=== PATIENT | female | born 2005 | race Caucasian/White ===

== ENCOUNTER 2024-02-14 21:44 | Inpatient (IN) ==
[2024-02-14] MEDS: SODIUM CHLORIDE 0.9% 1,000 ML IV ONE ×2 (22:10→23:53)
[2024-02-14] MEDS: LORazepam 1 MG/1 ML SYR ED Inj Use IV STA (22:11)
[2024-02-14 22:13] LABS: Basophils # (auto) 0.05 K/uL (0.00-0.20); Basophils % (auto) 0.4 %; Eosinophils # (auto) 0.06 K/uL (0.00-0.50); Eosinophils % (auto) 0.5 %; Hematocrit (blood only) 43.9 % (37.0-47.0); Hemoglobin 15.5 g/dl (12.0-16.0); Immature Granulocytes # (auto) 0.05 K/uL (0.01-0.20); Immature Granulocytes % (auto) 0.4 %; Lymphocytes # (auto) 4.02 K/uL (1.20-3.40); Mean Corpuscular Hgb Conc 35.3 g/dL (32.0-36.0); Mean Corpuscular Volume 84.9 fL (80.0-100.0); Mean Platelet Volume 10.1 fL (9.4-12.4); Monocytes # (auto) 0.55 K/uL (0.11-0.59); Monocytes % (auto) 4.9 %; Neutrophils # (auto) 6.45 K/uL (1.40-6.50); Neutrophils % (auto) 57.8 %; Platelet Count 354 K/uL (130-400); RDW Coefficient of Variation 11.9 % (11.5-14.5); RDW Standard Deviation 36.1 fL (36.4-46.3); Red Blood Count 5.17 M/uL (4.20-5.40); White Blood Count 11.18 K/ul (4.8-10.8)
[2024-02-14] MEDS: LORazepam 2 MG/1 ML VIAL IV STA ×2 (22:13→23:53)
--- NOTE | 2024-02-14 22:21 | Emergency Department Note ---
Impression & Plan Depression with suicidal ideation, Acute drug overdose, Seizure, Hypokalemia ED Provider Note NAME: WILLIAM BACK AGE: 18 SEX: F : 2005 ARRIVES VIA: Ambulance INFORMANT: Patient, EMS ED PROVIDER(S): John Painting DO CHIEF COMPLAINT: Overdose HPI: The patient is a 18-year-old female who presented to the emergency department for an overdose. The patient has been having depression and suicidal ideation over the course the last week. She admits that she took approximately 2 g of Lexapro at approximately 8 PM this evening. She did have 1 episode of emesis after she overdosed. The patient denies having any other coingestions. She denies having any chest pain or difficulty breathing. The patient denies any alcohol or drug abuse this evening. The patient is a history of similar episode in the past. The patient was found to be tachycardic. She arrived via ambulance. History additionally was obtained from the EMS personnel. ROS: See above HPI for pertinent positives & negatives. A total of 10 systems reviewed and were otherwise negative. PAST MEDICAL HISTORY: See Below PAST SURGICAL HISTORY: See Below FAMILY HISTORY: See Below SOCIAL HISTORY: See Below HOME MEDICATIONS: See Below ALLERGIES: See Below VITALS: See Below PHYSICAL EXAMINATION: GENERAL: The is awake and alert. She is somewhat anxious appearing. EYES: The conjunctivae are clear. The pupils are dilated and reactive to light bilaterally. There is nystagmus noted in both horizontal directions. EARS, NOSE, MOUTH AND THROAT: The nose is without any evidence of any deformity. NECK: The neck is nontender and supple. RESPIRATORY: Normal respiratory effort is noted there is no evidence of wheezing rhonchi or rales CARDIOVASCULAR: Tachycardic and regular heart sounds were noted to auscultation. There is no definite murmur. GASTROINTESTINAL: The abdomen is soft. Abdomen is nontender. MUSCULOSKELETAL/EXTREMITIES: There is no evidence of gross deformity full range of motion is noted in the hips and shoulders. SKIN: There is no obvious evidence of any rash. There are no petechiae, pallor or cyanosis noted. NEUROLOGIC: The patient is awake and alert. The patient follows commands well. Reflexes were 3+ in both patellar tendons. MEDICAL DECISION MAKING: The patient is a 18-year-old female who presented to the emergency department by ambulance after taking an overdose of her prescription Lexapro. The patient was already having nystagmus as well as tachycardia. She was hyperreflexic. IV fluid and IV Ativan was ordered. The patient did have a seizure while in the emergency department. She was treated further with IV fluids and further benzodiazepines. She was reevaluated multiple times. She started to have signs of intoxication with this overdose which included some alteration mental status. I discussed patient's laboratory and radiographic studies with her. [facility] agreed to evaluate the patient in the emergency department for further management and disposition. She was found to have decrease in her overall heart rate on my reevaluation. Triage Nursing notes reviewed. Prior medical records reviewed Vital Signs: reviewed and remarkable for tachycardia. Differential diagnosis: Overdose, toxicologic, infection, hypoglycemia, electrolyte abnormalities, cardiac sources, intracerebral event, neurologic, trauma, as well as other pathologies. ER treatment provided: See below Diagnostics interpreted by me: ECG: EKG was obtained in the emergency department. My interpretation is sinus tachycardia at 133 bpm. No PVCs were noted. Nonspecific ST segment abnormalities were noted. QTc was 586 milliseconds. This was compared to a tracing from January 15, 2023. The QTc at that time was 405 ms. Cardiac Monitoring: An order was placed for continuous cardiac monitoring. The monitor shows a rate of 120 bpm with sinus tachycardia. Laboratory studies: As stated above and show below. Imaging studies: See below. Radiographic imaging was reviewed by myself Consultation(s): I discussed this case with the [facility]. I discussed this case with Dr. Posada who is on-call for the [facility]. ED COURSE: Procedures: none Critical Care: I have personally spent greater than 45 minutes of critical care time in the direct management of this patient. This includes bedside care, interpretation of diagnostic studies, and testing, discussion with consultants, patient, and family members, and other required patient management activities. This 45 minutes is in excess of all separately billable procedures. Past Med/Surg History Problem List (Updated 02/14/24 @ 22:29 by John Painting DO) Hypokalemia (Acute) Seizure (Acute) Acute drug overdose (Acute) Depression with suicidal ideation (Acute) Dizziness of unknown etiology No significant past surgical history Depression Social History Smoking Status: Never smoker Preferred Language: Luxembourgish marital status: Single current occupational status: student Feels Safe at Home: Yes Gender Identity: Female Allergies Allergies Allergy/AdvReac Type Severity Reaction Status Date / Time No Known Allergies Allergy Unverified 03/01/23 11:08 Home Meds Home Medications Medication Instructions Recorded Confirmed escitalopram oxalate 20 mg tablet 20 mg PO DAILY 02/14/24 02/14/24 escitalopram oxalate 5 mg tablet 5 mg PO UD 02/14/24 02/14/24 Results & Data (ED) Vital Signs Vital Signs - 24 hr 02/14/24 21:49 02/14/24 21:56 02/14/24 21:57 Temperature 36.8 C Temperature Source Oral Pulse Rate 127 H 128 H 128 H Pulse Rate [Apical] Pulse Rate from SpO2 Sensor 127 H Pulse Rhythm Regular Pulse Rhythm [Apical] Pulse Strength Normal Pulse Strength [Apical] Respiratory Rate 22 23 Respiratory Effort / Characteristics Non-Labored Spontaneous Respiratory Depth Normal Respiratory Pattern Regular Blood Pressure 103/75 Blood Pressure [Right Arm] Blood Pressure Mean 84 Blood Pressure Mean [Right Arm] Blood Pressure Position Sitting Blood Pressure Position [Right Arm] Pulse Oximetry 97 98 Oxygen Delivery Method Room Air Oxygen Flow Rate Sepsis Recent Fever Within 48 Hours No Sepsis New/Unexplained Change in Mental Status N/A Sepsis Action Taken by Nursing No Action Required Oxygen Flow Rate - Titration Pulse Oximetry Post Tiitration 02/14/24 22:09 02/14/24 22:12 02/14/24 22:27 Temperature Temperature Source Pulse Rate 147 H 131 H Pulse Rate [Apical] Pulse Rate from SpO2 Sensor 146 H 131 H Pulse Rhythm Pulse Rhythm [Apical] Pulse Strength Pulse Strength [Apical] Respiratory Rate 24 23 Respiratory Effort / Characteristics Respiratory Depth Respiratory Pattern Blood Pressure 127/100 120/83 Blood Pressure [Right Arm] Blood Pressure Mean 109 95 Blood Pressure Mean [Right Arm] Blood Pressure Position Blood Pressure Position [Right Arm] Pulse Oximetry 100 99 100 Oxygen Delivery Method Oxymask Non-rebreather Oxygen Flow Rate 40 Sepsis Recent Fever Within 48 Hours Sepsis New/Unexplained Change in Mental Status Sepsis Action Taken by Nursing Oxygen Flow Rate - Titration 4 Pulse Oximetry Post Tiitration 99 02/14/24 22:27 02/14/24 22:45 02/14/24 23:00 Temperature Temperature Source Pulse Rate 130 H 143 H Pulse Rate [Apical] 128 H Pulse Rate from SpO2 Sensor 130 H Pulse Rhythm Pulse Rhythm [Apical] Pulse Strength Pulse Strength [Apical] Respiratory Rate 24 31 H 24 Respiratory Effort / Characteristics Respiratory Depth Respiratory Pattern Blood Pressure 117/71 119/73 Blood Pressure [Right Arm] 113/75 Blood Pressure Mean 86 86 Blood Pressure Mean [Right Arm] 87 Blood Pressure Position Blood Pressure Position [Right Arm] Pulse Oximetry 99 100 99 Oxygen Delivery Method Oxymask Oxygen Flow Rate 4 Sepsis Recent Fever Within 48 Hours Sepsis New/Unexplained Change in Mental Status Sepsis Action Taken by Nursing Oxygen Flow Rate - Titration Pulse Oximetry Post Tiitration 02/14/24 23:09 02/14/24 23:41 02/15/24 00:14 Temperature Temperature Source Pulse Rate 136 H Pulse Rate [Apical] 131 H 120 H Pulse Rate from SpO2 Sensor 136 H Pulse Rhythm Pulse Rhythm [Apical] Regular Regular Pulse Strength Pulse Strength [Apical] Strong Normal Respiratory Rate 21 25 H 22 Respiratory Effort / Characteristics Non-Labored Non-Labored Respiratory Depth Normal Normal Respiratory Pattern Regular Regular Blood Pressure Blood Pressure [Right Arm] 132/90 115/77 Blood Pressure Mean Blood Pressure Mean [Right Arm] 104 89 Blood Pressure Position Blood Pressure Position [Right Arm] Lying Lying Pulse Oximetry 96 95 96 Oxygen Delivery Method Room Air Room Air Oxygen Flow Rate Sepsis Recent Fever Within 48 Hours Sepsis New/Unexplained Change in Mental Status Sepsis Action Taken by Nursing Oxygen Flow Rate - Titration Pulse Oximetry Post Tiitration Home Medications Current Medication List: was personally reviewed by me Laboratory Data Attestation: I reviewed the patient's lab results. 02/14/24 21:40 02/14/24 21:40 Lab Results 02/14/24 02/14/24 02/14/24 Range/Units 21:18 21:40 21:48 WBC 11.18 H (4.8-10.8) K/ul RBC 5.17 (4.20-5.40) M/uL Hgb 15.5 (12.0-16.0) g/dl Hct 43.9 (37.0-47.0) % MCV 84.9 (80.0-100.0) fL MCH 30.0 (25.0-34.0) pg MCHC 35.3 (32.0-36.0) g/dL RDW Std Deviation 36.1 L (36.4-46.3) fL RDW Coeff of Sumi 11.9 (11.5-14.5) % Plt Count 354 (130-400) K/uL MPV 10.1 (9.4-12.4) fL Immature Gran % (Auto) 0.4 % Neut % (Auto) 57.8 % Lymph % (Auto) 36.0 % [place] % (Auto) 4.9 % Eos % (Auto) 0.5 % Baso % (Auto) 0.4 % Neut # (Auto) 6.45 (1.40-6.50) K/uL Lymph # (Auto) 4.02 H (1.20-3.40) K/uL [place] # (Auto) 0.55 (0.11-0.59) K/uL Eos # (Auto) 0.06 (0.00-0.50) K/uL Baso # (Auto) 0.05 (0.00-0.20) K/uL Immature Gran # (Auto) 0.05 (0.01-0.20) K/uL APTT 25 (21-31) Seconds PTT Ratio 0.9 VBG pH (7.36-7.41) VBG pCO2 (38-50) mmHg VBG pO2 mmHg VBG HCO3 mmol/L VBG O2 Saturation % VBG Base Excess mEq/L Sodium 135 L (136-145) mmol/L Potassium 2.7 L (3.5-5.1) mmol/L Chloride 100 (98-107) mmol/L Carbon Dioxide 23 (21-32) mmol/L Anion Gap 12 H (3-11) BUN 10 (6-23) mg/dl Creatinine 0.63 (0.6-1.2) mg/dl Est Cr Clr Drug Dosing 100.4 ml/min eGFR 130.97 BUN/Creatinine Ratio 15.9 (10-20) Glucose 98 (70-99(Fasting)) mg/dl Calcium 9.2 (8.6-10.3) mg/dl Magnesium 1.8 (1.7-2.4) mg/dl Total Bilirubin 0.5 (0.2-1.0) mg/dl AST 15 (13-39) U/L ALT 8 (7-52) U/L Alkaline Phosphatase 79 (34-104) U/L Total Protein 7.8 (6.0-8.3) gm/dl Albumin 4.9 (3.4-5.0) gm/dl Globulin 2.9 (2.5-4.0) gm/dl Albumin/Globulin Ratio 1.7 (0.9-2) TSH 3.309 (0.300-4.500) uIu/ml HCG, Qual Negative (Negative) Urine Color Urine Appearance (Clear) Urine pH (4.5-7.5) Ur Specific [place] (1.000-1.030) Urine Protein (Negative) Urine Glucose (UA) (Negative) Urine Ketones (Negative) Urine Blood (Negative) Urine Nitrite (Negative) Urine Bilirubin (Negative) Urine Urobilinogen (Negative) Ur Leukocyte Esterase (Negative) Urine WBC (Auto) (0-5) /hpf Urine RBC (Auto) (0-2) /hpf U Hyaline Cast (Auto) (0-2) /lpf U Epithel Cells (Auto) (0-2) /hpf Urine Bacteria (Auto) (None Seen) Calcium Oxalate Crystal (None Prsent) Salicylates < 3.0 L (3.0-30) mg/dl Acetaminophen < 3 L (10-30) ug/ml Ethyl Alcohol mg/dL (<10.0) mg/dl SARS-CoV-2, RNA, NAAT NEGATIVE (NEGATIVE) 02/14/24 02/14/24 02/15/24 Range/Units 21:55 23:45 00:11 WBC (4.8-10.8) K/ul RBC (4.20-5.40) M/uL Hgb (12.0-16.0) g/dl Hct (37.0-47.0) % MCV (80.0-100.0) fL MCH (25.0-34.0) pg MCHC (32.0-36.0) g/dL RDW Std Deviation (36.4-46.3) fL RDW Coeff of Sumi (11.5-14.5) % Plt Count (130-400) K/uL MPV (9.4-12.4) fL Immature Gran % (Auto) % Neut % (Auto) % Lymph % (Auto) % [place] % (Auto) % Eos % (Auto) % Baso % (Auto) % Neut # (Auto) (1.40-6.50) K/uL Lymph # (Auto) (1.20-3.40) K/uL [place] # (Auto) (0.11-0.59) K/uL Eos # (Auto) (0.00-0.50) K/uL Baso # (Auto) (0.00-0.20) K/uL Immature Gran # (Auto) (0.01-0.20) K/uL APTT (21-31) Seconds PTT Ratio VBG pH 7.37 (7.36-7.41) VBG pCO2 41 (38-50) mmHg VBG pO2 60 mmHg VBG HCO3 24 mmol/L VBG O2 Saturation 92.3 % VBG Base Excess -1.5 mEq/L Sodium (136-145) mmol/L Potassium (3.5-5.1) mmol/L Chloride (98-107) mmol/L Carbon Dioxide (21-32) mmol/L Anion Gap (3-11) BUN (6-23) mg/dl Creatinine (0.6-1.2) mg/dl Est Cr Clr Drug Dosing ml/min eGFR BUN/Creatinine Ratio (10-20) Glucose (70-99(Fasting)) mg/dl Calcium (8.6-10.3) mg/dl Magnesium (1.7-2.4) mg/dl Total Bilirubin (0.2-1.0) mg/dl AST (13-39) U/L ALT (7-52) U/L Alkaline Phosphatase (34-104) U/L Total Protein (6.0-8.3) gm/dl Albumin (3.4-5.0) gm/dl Globulin (2.5-4.0) gm/dl Albumin/Globulin Ratio (0.9-2) TSH (0.300-4.500) uIu/ml HCG, Qual (Negative) Urine Color Yellow Urine Appearance Clear (Clear) Urine pH 5.0 (4.5-7.5) Ur Specific [place] 1.007 (1.000-1.030) Urine Protein Negative (Negative) Urine Glucose (UA) Negative (Negative) Urine Ketones Negative (Negative) Urine Blood Trace H (Negative) Urine Nitrite Negative (Negative) Urine Bilirubin Negative (Negative) Urine Urobilinogen Negative (Negative) Ur Leukocyte Esterase Negative (Negative) Urine WBC (Auto) 0-5 (0-5) /hpf Urine RBC (Auto) 6-10 H (0-2) /hpf U Hyaline Cast (Auto) 0-2 (0-2) /lpf U Epithel Cells (Auto) 0-2 (0-2) /hpf Urine Bacteria (Auto) None Seen (None Seen) Calcium Oxalate Crystal Present A (None Prsent) Salicylates (3.0-30) mg/dl Acetaminophen (10-30) ug/ml Ethyl Alcohol mg/dL < 10.0 (<10.0) mg/dl SARS-CoV-2, RNA, NAAT (NEGATIVE) Administered Medications Sodium Chloride (Nss) 1,000 mls @ 999 mls/hr IV .Q1H1M ONE Stop: 02/15/24 00:46 Last Admin: 02/14/24 23:53 Dose: 999 mls/hr Documented By: SELENE Discontinued Medications Sodium Chloride (Nss) 1,000 mls @ 999 mls/hr IV .Q1H1M ONE Stop: 02/14/24 22:59 Last Infusion: 02/14/24 23:35 Dose: Infused Documented By: Admin: 02/14/24 22:10 Dose: 999 mls/hr Documented By: JAZMIN Magnesium Sulfate/Dextrose (Magnesium Sulfate / D5w) 1 gm in 100 mls @ 100 mls/hr IV Q1H MISAEL Stop: 02/15/24 00:22 Last Admin: 02/14/24 23:53 Dose: 100 mls/hr Documented By: SELENE Potassium Chloride (K Quan / Wtr) 10 meq in 100 mls @ 100 mls/hr IV Q1H MISAEL Stop: 02/15/24 00:29 Last Admin: 02/14/24 23:52 Dose: 100 mls/hr Documented By: SELENE Lorazepam (Lorazepam 1 Mg/1 Ml Syr Ed Inj Use) 0.5 mg IV ONE STA Stop: 02/14/24 21:50 Last Admin: 02/14/24 22:11 Dose: 0.5 mg Documented By: JAZMIN Lorazepam (Lorazepam 2 Mg/1 Ml Vial) 0.5 mg IV NOW STA Stop: 02/14/24 22:11 Last Admin: 02/14/24 22:13 Dose: 0.5 mg Documented By: JAZMIN Lorazepam (Lorazepam 2 Mg/1 Ml Vial) 0.5 mg IV NOW STA Stop: 02/14/24 23:47 Last Admin: 02/14/24 23:53 Dose: 0.5 mg Documented By: SELENE Imaging Data Attestation: I personally reviewed and interpreted this imaging study as follows: My Impression: CT the brain was obtained in the emergency department. My interpretation is no intracranial hemorrhage or mass effect, final report pending. Discharge Plan Visit Data Chief Complaint: Overdose (Intentional) Stated Complaint: OVERDOSE ON LEXAPRO ED Provider: John Painting Discharge Problem: Depression with suicidal ideation, Acute drug overdose, Seizure, Hypokalemia Patient Disposition: Being Evaluated by Hospitalist Forms Stand Alone Forms: My [facility], Suicide Prevention Resources Prescriptions Prescriptions: No Action escitalopram oxalate 20 mg tablet 20 mg PO DAILY escitalopram oxalate 5 mg tablet 5 mg PO UD Referrals Referrals: [facility] [Primary Care Provider] - Discharge Problem: Acute drug overdose Qualifiers: Encounter type: initial encounter Injury intent: intentional self-harm Q ualified Code(s): T50.902A - Poisoning by unspecified drugs, medicaments and biological substances, intentional self-harm, initial encounter
[2024-02-14 22:25] LABS: Pregnancy Test, Serum Negative (Negative)
[2024-02-14 22:26] LABS: Albumin Globulin Ratio 1.7 (0.9-2); Albumin Level 4.9 gm/dl (3.4-5.0); BUN Creatinine Ratio 15.9 (10-20); Bilirubin,Total 0.5 mg/dl (0.2-1.0); Calcium 9.2 mg/dl (8.6-10.3); Creatinine Clr Calc Pharmacy 100.4 ml/min; Globulin 2.9 gm/dl (2.5-4.0); Potassium 2.7 mmol/L (3.5-5.1); Total Protein 7.8 gm/dl (6.0-8.3)
[2024-02-14 22:28] LABS: Acetaminophen < 3 ug/ml (10-30); Salicylate < 3.0 mg/dl (3.0-30)
[2024-02-14 22:42] LABS: Thyroid Stimulating Hormone 3.309 uIu/ml (0.300-4.500)
[2024-02-14 22:44] LABS: Partial Thromboplastin Ratio 0.9; Partial Thromboplastin Time 25 Seconds (21-31)
[2024-02-14 22:52] LABS: Magnesium 1.8 mg/dl (1.7-2.4)
--- NOTE | 2024-02-14 23:33 | History & Physical Report ---
Date of Service February 14, 2024 Assessment & Plan (1) Acute drug overdose: Plan: 18yo female with history of depression on Escitalopram presenting with intentional overdose in attempt to end her life. Patient reports taking 2gm of Escitalopram this evening around 20:00. She does have appreciable nystagmus and tremors and had a witnessed seizure in the ER. Prolonged QT noted on initial EKG -Admit to PCU -Maintain 1:1 precautions -Suicide prevention strategies -Psychiatry consultation appreciated -EKG q 4 hours to monitor intervals - prolonged QT interval improving following administration of IV Mg. -Ativan as needed for agitation - 0.5mg IV q 8 hours PRN (2) Electrolyte abnormality: Plan: Hypokalemia with K=2.7. Has received 100mEq of KCl thus far -Repeat BMP in AM -Continue repletion as needed History of Present Illness Chief Complaint: intentional overdose Primary Care Provider: [facility] Jenifer Stephens is a 18yo female with history of depression presenting after an intentional overdose. Patient reports feeling overwhelmed and increased depression over the last week. This evening around 20:00 she took 2000mg of Escitalopram. She did vomit after the ingestion but is unsure how many pills came up, if any at all. Patient reports prior suicidal ideation, no prior attempts. She has been on Escitalopram for a while - medications managed by her home physician. In the ER patient noted to be tremulous with nystagmus. She had a witnessed tonic-clonic seizure which abated with IV Ativan Patient's initial EKG with narrow complex tachycardia at 133bpm, prolonged BQs=970 ER Course: NSS x 2L Ativan 0.5mg IV x 3 doses KCl 10mEq IV + 10mEq IV + 80mEq PO Magnesium sulfate x 2gm Allergies Allergy/AdvReac Type Severity Reaction Status Date / Time No Known Allergies Allergy Unverified 03/01/23 11:08 Home Medications Medication Instructions Recorded Confirmed Type escitalopram oxalate 20 mg tablet 20 mg PO DAILY 02/14/24 02/14/24 History escitalopram oxalate 5 mg tablet 5 mg PO UD 02/14/24 02/14/24 History Past Med/Surg History Problem List (Updated 02/15/24 @ 04:13 by Jannette Posada DO) Electrolyte abnormality Hypokalemia (Acute) Seizure (Acute) Acute drug overdose (Acute) Depression Surgical History (Updated 02/15/24 @ 04:13 by Jannette Posada DO) No significant past surgical history Social History Smoking Status: Never smoker Second Hand Exposure: No; Do You Dip or Chew Tobacco: No; Tobacco Cessation Education Requested by Patient: No Hx Alcohol Use: No Hx Substance Use: No Preferred Language: Russian Communication Ability: Effective Bulb Filler Required: No Beliefs That Will Affect Care: None marital status: Single Current Living Situation: Alone current occupational status: student Other Information That Helps Us Care for You: No Feels Safe at Home: Yes Safety Concerns: Feels Safe At This Time Gender Identity: Female Assistive Devices: None Review of Systems Review of Systems: All systems reviewed & are unremarkable except as noted in HPI & below Physical Exam Physical Exam: General: patient restless, mildly agitated Skin: warm, dry, intact, no rashes or lesions HEENT: NC/AT, PERRL, EOMI, anicteric sclera, +horizontal nystagmus, conjunctiva without injection, external ear normal to inspection and nontender, nares patent, moist mucus membranes, dentition intact, no oropharyngeal lesions, neck supple, trachea midline, no LAD, no thyromegaly, no JVD Heart: +S1/S2, regular, tachycardic, no m/r/g Lungs: equal air entry bilaterally, no rales/rhonchi/wheezes Abd: +BS, soft, NT/ND, no masses/organomegaly/ascites Ext: warm, 2+ pulses in UE/LE bilaterally, no clubbing/cyanosis or edema Neuro: restless, tremors noted in bilateral legs, nystagmus noted Results & Data Results & Data Vital Signs (Past 12 Hours) Vital Signs Temp Pulse Pulse Resp BP BP Pulse Ox 02/14/24 23:09 136 H 21 96 02/14/24 23:00 128 H 24 113/75 99 02/14/24 22:45 143 H 31 H 119/73 100 02/14/24 22:27 130 H 24 117/71 99 02/14/24 22:27 100 02/14/24 22:12 131 H 23 120/83 99 02/14/24 22:09 147 H 24 127/100 100 02/14/24 21:57 128 H 23 98 02/14/24 21:56 128 H 02/14/24 21:49 36.8 C 127 H 22 103/75 97 O2 Del Method O2 Flow Rate 02/14/24 23:09 02/14/24 23:00 Oxymask 4 02/14/24 22:45 02/14/24 22:27 02/14/24 22:27 Oxymask, Non-rebreather 40 02/14/24 22:12 02/14/24 22:09 02/14/24 21:57 02/14/24 21:56 02/14/24 21:49 Room Air Laboratory Results Laboratory Results WBC 11.18 K/ul (4.8-10.8) H 02/14/24 21:40 RBC 5.17 M/uL (4.20-5.40) 02/14/24 21:40 Hgb 15.5 g/dl (12.0-16.0) 02/14/24 21:40 Hct 43.9 % (37.0-47.0) 02/14/24 21:40 MCV 84.9 fL (80.0-100.0) 02/14/24 21:40 MCH 30.0 pg (25.0-34.0) 02/14/24 21:40 MCHC 35.3 g/dL (32.0-36.0) 02/14/24 21:40 RDW Std Deviation 36.1 fL (36.4-46.3) L 02/14/24 21:40 RDW Coeff of Sumi 11.9 % (11.5-14.5) 02/14/24 21:40 Plt Count 354 K/uL (130-400) 02/14/24 21:40 MPV 10.1 fL (9.4-12.4) 02/14/24 21:40 Immature Gran % (Auto) 0.4 % 02/14/24 21:40 Neut % (Auto) 57.8 % 02/14/24 21:40 Lymph % (Auto) 36.0 % 02/14/24 21:40 [place] % (Auto) 4.9 % 02/14/24 21:40 Eos % (Auto) 0.5 % 02/14/24 21:40 Baso % (Auto) 0.4 % 02/14/24 21:40 Neut # (Auto) 6.45 K/uL (1.40-6.50) 02/14/24 21:40 Lymph # (Auto) 4.02 K/uL (1.20-3.40) H 02/14/24 21:40 [place] # (Auto) 0.55 K/uL (0.11-0.59) 02/14/24 21:40 Eos # (Auto) 0.06 K/uL (0.00-0.50) 02/14/24 21:40 Baso # (Auto) 0.05 K/uL (0.00-0.20) 02/14/24 21:40 Immature Gran # (Auto) 0.05 K/uL (0.01-0.20) 02/14/24 21:40 APTT 25 Seconds (21-31) 02/14/24 21:48 PTT Ratio 0.9 02/14/24 21:48 VBG pH 7.37 (7.36-7.41) 02/15/24 00:11 VBG pCO2 41 mmHg (38-50) 02/15/24 00:11 VBG pO2 60 mmHg 02/15/24 00:11 VBG HCO3 24 mmol/L 02/15/24 00:11 VBG O2 Saturation 92.3 % 02/15/24 00:11 VBG Base Excess -1.5 mEq/L 02/15/24 00:11 Sodium 135 mmol/L (136-145) L 02/14/24 21:40 Potassium 2.7 mmol/L (3.5-5.1) L 02/14/24 21:40 Chloride 100 mmol/L (98-107) 02/14/24 21:40 Carbon Dioxide 23 mmol/L (21-32) 02/14/24 21:40 Anion Gap 12 (3-11) H 02/14/24 21:40 BUN 10 mg/dl (6-23) 02/14/24 21:40 Creatinine 0.63 mg/dl (0.6-1.2) 02/14/24 21:40 Est Cr Clr Drug Dosing 100.4 ml/min 02/14/24 21:40 eGFR 130.97 02/14/24 21:40 BUN/Creatinine Ratio 15.9 (10-20) 02/14/24 21:40 Glucose 98 mg/dl (70-99(Fasting)) 02/14/24 21:40 Calcium 9.2 mg/dl (8.6-10.3) 02/14/24 21:40 Magnesium 1.8 mg/dl (1.7-2.4) 02/14/24 21:40 Total Bilirubin 0.5 mg/dl (0.2-1.0) 02/14/24 21:40 AST 15 U/L (13-39) 02/14/24 21:40 ALT 8 U/L (7-52) 02/14/24 21:40 Alkaline Phosphatase 79 U/L (34-104) 02/14/24 21:40 Total Protein 7.8 gm/dl (6.0-8.3) 02/14/24 21:40 Albumin 4.9 gm/dl (3.4-5.0) 02/14/24 21:40 Globulin 2.9 gm/dl (2.5-4.0) 02/14/24 21:40 Albumin/Globulin Ratio 1.7 (0.9-2) 02/14/24 21:40 TSH 3.309 uIu/ml (0.300-4.500) 02/14/24 21:40 HCG, Qual Negative (Negative) 02/14/24 21:40 Urine Color Yellow 02/14/24 23:45 Urine Appearance Clear (Clear) 02/14/24 23:45 Urine pH 5.0 (4.5-7.5) 02/14/24 23:45 Ur Specific [place] 1.007 (1.000-1.030) 02/14/24 23:45 Urine Protein Negative (Negative) 02/14/24 23:45 Urine Glucose (UA) Negative (Negative) 02/14/24 23:45 Urine Ketones Negative (Negative) 02/14/24 23:45 Urine Blood Trace (Negative) H 02/14/24 23:45 Urine Nitrite Negative (Negative) 02/14/24 23:45 Urine Bilirubin Negative (Negative) 02/14/24 23:45 Urine Urobilinogen Negative (Negative) 02/14/24 23:45 Ur Leukocyte Esterase Negative (Negative) 02/14/24 23:45 Urine WBC (Auto) 0-5 /hpf (0-5) 02/14/24 23:45 Urine RBC (Auto) 6-10 /hpf (0-2) H 02/14/24 23:45 U Hyaline Cast (Auto) 0-2 /lpf (0-2) 02/14/24 23:45 U Epithel Cells (Auto) 0-2 /hpf (0-2) 02/14/24 23:45 Urine Bacteria (Auto) None Seen (None Seen) 02/14/24 23:45 Calcium Oxalate Crystal Present (None Prsent) A 02/14/24 23:45 Salicylates < 3.0 mg/dl (3.0-30) L 02/14/24 21:40 Urine Opiates Screen Neg (Neg) 02/14/24 23:45 Ur Methadone, Qual Neg (Neg) 02/14/24 23:45 Urine Fentanyl Screen Neg (Neg) 02/14/24 23:45 Acetaminophen < 3 ug/ml (10-30) L 02/14/24 21:40 Urine Barbiturates Neg (Neg) 02/14/24 23:45 Ur Phencyclidine (PCP) Neg (Neg) 02/14/24 23:45 U Amphetamin/Meth Scrn Neg (Neg) 02/14/24 23:45 MDMA (Ecstasy) Screen Neg (Neg) 02/14/24 23:45 U Benzodiazepines Scrn Neg (Neg) 02/14/24 23:45 Ur Cocaine Metabolite Neg (Neg) 02/14/24 23:45 U Marijuana (THC) Screen Neg (Neg) 02/14/24 23:45 Ethyl Alcohol mg/dL < 10.0 mg/dl (<10.0) 02/14/24 21:55 SARS-CoV-2, RNA, NAAT NEGATIVE (NEGATIVE) 02/14/24 21:[address] 02/14/24 22:40 Exam(s): CT HEAD Without Contrast EXAM: CT Head Without Intravenous Contrast CLINICAL HISTORY: Reason for exam: sz. TECHNIQUE: Axial computed tomography images of the head/brain without intravenous contrast. CTDI is 38.81 mGy and DLP is 625.8 mGy-cm. Automated exposure control was utilized for the study. A dose lowering technique was utilized adhering to the principles of ALARA. COMPARISON: No relevant prior studies available. FINDINGS: Brain: No hemorrhage, extra-axial fluid collection, mass effect, or edema. Ventricles: Unremarkable. Bones/joints: Unremarkable. No fracture. Soft tissues: Unremarkable. Sinuses: No acute sinusitis. Mastoid air cells: Unremarkable as visualized. IMPRESSION: 1. No acute intracranial abnormality. Electronically signed by: Sherman So MD 02/15/24 00:30 AM ECG Additional Comments: Initial EKG 21:52 with narrow complex tachycardia at 133bpm, rightward axis, QRS=92, QTc prolonged at 586, no acute ischemic changes Repeat EKG at 01:[address] at 109bpm, incomplete RBBB, DK=641, QRS=92, MYt=505 PG Care Time/CCT Total # of Minutes Spent Total Time Spent with Patient: Total time spent is greater than 50% in coordination of care (as documented) at patient's floor/unit and/or counseling patient: Coding Level of Care Code 84461 INT INP/OBS CARE 3/75MIN Diagnoses Acute drug overdose T50.902A Encounter type: initial encounter Injury intent: intentional self-harm Electrolyte abnormality E87.8 (1) Acute drug overdose Encounter type: initial encounter Injury intent: intentional self-harm Qualified Code(s): T50.902A - Poisoning by unspecified drugs, medicaments and biological substances, intentional self-harm, initial encounter
[2024-02-14] MEDS: POTASSIUM CHLORIDE / WTR 10 MEQ/100 ML PLCT IV SCH (23:52)
[2024-02-14] MEDS: MAGNESIUM SULFATE / D5W 1 GM/100 ML BAG IV SCH (23:53)
[2024-02-15 00:17] LABS: Appearance Urine Clear (Clear); Bacteria Urine Automated None Seen (None Seen); Bilirubin Urine Negative (Negative); Blood Urine Trace (Negative); Calcium Oxalate Crystals Urine Present (None Prsent); Cast Urine Automated 0-2 /lpf (0-2); Color Urine Yellow; Epithelial Cell Urine Auto 0-2 /hpf (0-2); Glucose Urine UA Negative (Negative); Ketones Urine Negative (Negative); Leukocyte Esterase Urine Negative (Negative); Nitrite Urine Negative (Negative); Protein Urine Negative (Negative); Specific Gravity Urine 1.007 (1.000-1.030); Urobilinogen Urine Negative (Negative); WBC Urine Automated 0-5 /hpf (0-5)
[2024-02-15 00:21] LABS: Base Excess VBG -1.5 mEq/L; HCO3 VBG 24 mmol/L; Oxygen Saturation VBG 92.3 %; PCO2 VBG 41 mmHg (38-50); PO2 VBG 60 mmHg; pH VBG 7.37 (7.36-7.41)
--- NOTE | 2024-02-15 00:31 | CT Scan Report ---
Exam(s): CT HEAD Without Contrast EXAM: CT Head Without Intravenous Contrast CLINICAL HISTORY: Reason for exam: sz. TECHNIQUE: Axial computed tomography images of the head/brain without intravenous contrast. CTDI is 38.81 mGy and DLP is 625.8 mGy-cm. Automated exposure control was utilized for the study. A dose lowering technique was utilized adhering to the principles of ALARA. COMPARISON: No relevant prior studies available. FINDINGS: Brain: No hemorrhage, extra-axial fluid collection, mass effect, or edema. Ventricles: Unremarkable. Bones/joints: Unremarkable. No fracture. Soft tissues: Unremarkable. Sinuses: No acute sinusitis. Mastoid air cells: Unremarkable as visualized. IMPRESSION: 1. No acute intracranial abnormality. Electronically signed by: Sherman So MD 02/15/24 00:30 AM
[2024-02-15 00:33] LABS: Amphetamines+Metham, Urine Neg (Neg); Barbiturates, Urine Neg (Neg); Benzodiazepine, Urine Neg (Neg); Cocaine, Urine Neg (Neg); Fentanyl, Urine Neg (Neg); MDMA (Ecstacy), Urine Neg (Neg); Marijuana, Urine Neg (Neg); Methadone, Urine Neg (Neg); Opiate, Urine Neg (Neg); Phencyclidine, Urine Neg (Neg)
[2024-02-15] MEDS: POTASSIUM CHLORIDE CRTAB 20 MEQ TABCR PO STA (01:31)
[2024-02-15] MEDS ORDERED: ACETAMINOPHEN 325 MG TAB PO PRN (02:10)
[2024-02-15 06:32] LABS: Hematocrit (blood only) 39.2 % (37.0-47.0); Hemoglobin 13.7 g/dl (12.0-16.0); Mean Corpuscular Hgb Conc 34.9 g/dL (32.0-36.0); Mean Corpuscular Volume 85.8 fL (80.0-100.0); Platelet Count 301 K/uL (130-400); RDW Coefficient of Variation 11.9 % (11.5-14.5); RDW Standard Deviation 37.2 fL (36.4-46.3); Red Blood Count 4.57 M/uL (4.20-5.40); White Blood Count 17.54 K/ul (4.8-10.8)
[2024-02-15 06:47] LABS: Albumin Level 4.3 gm/dl (3.4-5.0); BUN Creatinine Ratio 10.7 (10-20); Bilirubin Direct 0.1 mg/dl (0-0.2); Bilirubin,Total 0.5 mg/dl (0.2-1.0); Calcium 8.8 mg/dl (8.6-10.3); Creatinine Clr Calc Pharmacy 75.2 ml/min; Magnesium 2.8 mg/dl (1.7-2.4); Phosphorus 3.5 mg/dl (2.5-4.9); Potassium 4.7 mmol/L (3.5-5.1); Total Protein 6.9 gm/dl (6.0-8.3)
--- NOTE | 2024-02-15 11:47 | Electrocardiogram Report ---
Test Reason : Blood Pressure : */* mmHG Vent. Rate : 133 BPM Atrial Rate : * BPM P-R Int : * ms QRS Dur : 92 ms QT Int : 394 ms P-R-T Axes : * 102 62 degrees QTcB Int : 586 ms Sinus tachycardia Rightward axis Nonspecific ST abnormality Abnormal ECG When compared with ECG of 15-Jan-2023 16:28, Vent. rate has increased by 64 bpm Confirmed by Gaurav Prieto ([id number]) on 02/15/2024 11:47:35 AM Referred By: REFERRED SELF Confirmed By: Gaurav Prieto
--- NOTE | 2024-02-15 11:52 | Electrocardiogram Report ---
Test Reason : Blood Pressure : */* mmHG Vent. Rate : 97 BPM Atrial Rate : 97 BPM P-R Int : 148 ms QRS Dur : 96 ms QT Int : 412 ms P-R-T Axes : 77 76 53 degrees QTcB Int : 523 ms Normal sinus rhythm Right atrial enlargement Prolonged QT Abnormal ECG When compared with ECG of 15-Feb-2024 01:49, (unconfirmed) Left posterior fascicular block is no longer Present Nonspecific T wave abnormality, improved in Inferior leads Confirmed by Gaurav Prieto ([id number]) on 02/15/2024 11:52:04 AM Referred By: REFERRED SELF Confirmed By: Gaurav Prieto
--- NOTE | 2024-02-15 11:54 | Electrocardiogram Report ---
Test Reason : Blood Pressure : */* mmHG Vent. Rate : 109 BPM Atrial Rate : 109 BPM P-R Int : 162 ms QRS Dur : 92 ms QT Int : 364 ms P-R-T Axes : * 148 149 degrees QTcB Int : 490 ms Possible limb lead reversal Sinus tachycardia Incomplete right bundle branch block Left posterior fascicular block Abnormal ECG When compared with ECG of 14-Feb-2024 21:52, (unconfirmed) Left posterior fascicular block is now Present Nonspecific T wave abnormality, worse in Inferior leads Confirmed by Gaurav Prieto ([id number]) on 02/15/2024 11:53:58 AM Referred By: REFERRED SELF Confirmed By: Gaurav Prieto
--- NOTE | 2024-02-15 11:58 | Electrocardiogram Report ---
Test Reason : Blood Pressure : */* mmHG Vent. Rate : 86 BPM Atrial Rate : 86 BPM P-R Int : 132 ms QRS Dur : 94 ms QT Int : 420 ms P-R-T Axes : 85 77 51 degrees QTcB Int : 502 ms Normal sinus rhythm Right atrial enlargement Prolonged QT Abnormal ECG When compared with ECG of 15-Feb-2024 05:14, (unconfirmed) No significant change was found Confirmed by Gaurav Prieto ([id number]) on 02/15/2024 11:57:38 AM Referred By: REFERRED SELF Confirmed By: Gaurav Prieto
[2024-02-15] MEDS: LORazepam 2 MG/1 ML VIAL IV PRN (12:25)
--- NOTE | 2024-02-15 14:03 | Psychiatric Consultation ---
Date of Consultation February 15, 2024 Impression / Recommendations Impression This is a 18 yo woman and [employer] student admitted medically following an intentional overdose suicide attempt. Diagnostically consistent with MDD and worsening of anorexia in the context of recent stressors including academic demand and difficulty. Acute risk of self-harm remains elevated and high given suicide attempt requiring medical admission, major depressive symptoms, co- occurring psychiatric conditions, and ambivalence about surviving the attempt. Given elevated risk of harm to self they meet criteria for inpatient psychiatric care for diagnostic clarification, safety/stabilization, development of additional coping skills, medication management and disposition/safety planning once medically stable. If they do not agree to voluntary treatment at that time they will meet criteria for 302 status based on severity of suicide attempt and ongoing modifiable risk factors. Overall, I spent a total of 60 minutes with this case including review of chart records, review of labwork, direct evaluation of the patient at bedside, counseling the patient, discussion of the patient with the Nurse and with the hospitalist provider, discussion with the psychiatric liason during clinical rounds, review of collateral historian information from the family and documentation in the electronic health record. (1) Suicide attempt: (2) Depression: (3) DARINEL (generalized anxiety disorder): (4) Anorexia: Plan -Continue 1-on-1 for risk of harm to self -Do not discharge or allow to leave AMA -Hold psych medications for now -Once medically cleared plan for psychiatric hospitalization (either 201 or 302 status). Family prefers [facility] or facilities near [place]. Bad prior experience at [facility] so no referrals there. Psych History Identifying Data 18 yo woman with hx anorexia, depression, anxiety admitted medically following suicide attempt via ingestion of 2g of escitalopram. Psychiatry consulted for risk assessment and disposition recommendations. Chief Complaint "I was overwhelmed by everything". History of Present Illness Jenifer presented to the hospital after suicide attempt via intentional overdose with ~2g of escitalopram (has outpt script for 25mg daily). She had a seizure while in the emergency room and signs of serotonin syndrome including nystagmus and hyperreflexia. Today she confirms suicide attempt reporting driving factors of increased academic stress and difficulty. She is credit-leonardo a freshman in Phylogy engineering and her coursework has been very demanding. She is "relieved" to be alive but also reports "mixed feelings" about having survived the attempt. Increased restriction recently due to stress and worsened depression. Reports starting to think about suicide with plan on Tuesday before acting on these thoughts yesterday. She has history of inpt psych admission in July 2023 for 10 days for depression with SI at the [facility], this stay was not helpful. History of inpt and IOP for eating disorder tx in the past at [facility]. Has psychiatrist Dr. Washburn through [facility] and therapist Jillian who she sees via telehealth while at [employer]. Her mother is supportive and initially at bedside. She gave permission and signed KARLEE for her mother. Allergies Allergy/AdvReac Type Severity Reaction Status Date / Time No Known Allergies Allergy Unverified 03/01/23 11:08 Home Medications Medication Instructions Recorded Confirmed Type escitalopram oxalate 20 mg tablet 20 mg PO DAILY 02/14/24 02/14/24 History escitalopram oxalate 5 mg tablet 5 mg PO UD 02/14/24 02/14/24 History Patient History Surgical History (Updated 02/15/24 @ 04:13 by Jannette Posada DO) No significant past surgical history Social History Smoking Status: Never smoker Second Hand Exposure: No; Do You Dip or Chew Tobacco: No; Hx Alcohol Use: No Hx Substance Use: No Preferred Language: Swiss Communication Ability: Effective 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 Beliefs That Will Affect Care: None marital status: Single Current Living Situation: Alone current occupational status: student Feels Safe at Home: Yes Gender Identity: Female Assistive Devices: None Physical Exam Psychiatric: Orientation: alert (but drowsy) and oriented x 3 Apperance: appropriately dressed Eye Contact: + fair eye contact (nystagmus present) Speech: normal rate/rhythm/volume of speech Affect: + depressed affect Mood: + depressed mood and + anxious mood Thought Process: goal directed thought process and + concrete thought process Thought Content: reality based without delusions Suicidal Thoughts: denies suicidal thoughts (but s/p serious suicide attempt and somewhat ambivalent about being alive) Homicidal Thoughts: denies homicidal thoughts Hallucinations: no auditory hallucinations and no visual hallucinations Cognition: attention grossly intact and language grossly intact Estimated Intelligence: consistent with education level Insight: + fair insight Judgment: + limited judgement Vital Signs (Past 24 Hours): Last Vital Signs Temp 37.3 C 02/15/24 11:22 Pulse 90 02/15/24 13:54 Resp 17 02/15/24 11:22 BP 99/63 L 02/15/24 11:22 Pulse Ox 97 02/15/24 11:22 O2 Del Method Room Air 02/15/24 11:22 O2 Flow Rate 4 02/14/24 23:00 Results & Data (PSY) Medications Administered Lorazepam (Lorazepam 2 Mg/1 Ml Vial) 0.5 mg IV Q8H PRN PRN Reason: Anxiety/Agitation Stop: 03/16/24 02:09 Last Admin: 02/15/24 12:25 Dose: 0.5 mg Documented By: PK Coding Level of Care Code 27068 IN/OBS CONSULT LVL 4,60M Diagnoses Suicide attempt T14.91XA Depression F32.A DARINEL (generalized anxiety disorder) F41.1 Anorexia R63.0
--- NOTE | 2024-02-15 14:37 | Electrocardiogram Report ---
Test Reason : Blood Pressure : */* mmHG Vent. Rate : 96 BPM Atrial Rate : 96 BPM P-R Int : 138 ms QRS Dur : 94 ms QT Int : 476 ms P-R-T Axes : 80 80 60 degrees QTcB Int : 601 ms Normal sinus rhythm Right atrial enlargement Prolonged QT Abnormal ECG When compared with ECG of 15-Feb-2024 10:05, QT has lengthened Confirmed by Gaurav Prieto ([id number]) on 02/15/2024 2:36:42 PM Referred By: REFERRED SELF Confirmed By: Gaurav Prieto
[2024-02-15] MEDS: LACTATED RINGER'S 1,000 ML IV SCH (14:41)
[2024-02-15] MEDS: LORazepam 2 MG/1 ML VIAL IV SCH (14:48)
--- NOTE | 2024-02-15 16:14 | Hospitalist Progress Note ---
Date of Service February 15, 2024 Assessment & Plan (1) Acute drug overdose: Plan: 18yo female with history of depression on Escitalopram presenting with intentional overdose in attempt to end her life. Patient reports taking 2gm of Escitalopram this evening around 20:00. She does have appreciable nystagmus and tremors and had a witnessed seizure in the ER. Prolonged QT noted on initial EKG -Admit to PCU -Maintain 1:1 precautions -Suicide prevention strategies -Psychiatry consultation appreciated -EKG q 4 hours to monitor intervals - prolonged QT interval improving following administration of IV Mg. -Ativan as needed for agitation - 0.5mg IV q 8 hours scheduled. -patient remains tachycardic and hypotensive 02/14 - 500ml Bolus LR followed by 1L LR overnight given NPO status. -CBC reviewed 02/14: leukocytosis with 17.54, H&H stable -BMP reviewed 02/14: Na 141, K corrected to 4.7, kidney function stable. -Mg reviewed 02/14: 2.8 AM CBC, BMP, Magnesium (2) Electrolyte abnormality: Plan: Plan as above Plan Discussed plan w/ mother at bedside. Diet: NPO Disposition: tele Admission and Anticipated Discharge Date Admission Date: February 14, 2024 Subjective Patient seen and examined this morning. Mother and director medical safety at bedside. Patient reports to be feeling nauseous and tired. Denies any additional complaints. She was resting comfortably in bed. Physical Exam 2 Constitutional: WD/WN, vitals as above Respiratory: lung sounds CTA Cardiovascular: tachycardic, no murmur, no edema Neurologic: +nystagmus + tremors Results & Data Results & Data Vital Signs (Past 12 Hours) Vital Signs Temp Pulse Pulse Resp BP BP Pulse Ox 02/15/24 15:23 37.0 C 93 H 17 92/60 L 96 02/15/24 13:54 90 02/15/24 11:22 37.3 C 89 17 99/63 L 97 02/15/24 07:07 37.0 C 96 H 18 102/68 97 02/15/24 05:53 91 H O2 Del Method 02/15/24 15:23 Room Air 02/15/24 13:54 02/15/24 11:22 Room Air 02/15/24 07:07 Room Air 02/15/24 05:53 Laboratory Results 02/15/24 06:13 02/15/24 06:13 PG Care Time/CCT Total # of Minutes Spent Total Time Spent with Patient: Total time spent is greater than 50% in coordination of care (as documented) at patient's floor/unit and/or counseling patient: Coding Level of Care Code 63710 SUB INP/OBS CARE 2/35MIN Diagnoses Acute drug overdose T50.902A Encounter type: initial encounter Injury intent: intentional self-harm Electrolyte abnormality E87.8 (1) Acute drug overdose Encounter type: initial encounter Injury intent: intentional self-harm Qualified Code(s): T50.902A - Poisoning by unspecified drugs, medicaments and biological substances, intentional self-harm, initial encounter
[2024-02-15] MEDS: LACTATED RINGER'S 500 ML IV ONE (16:48)
[2024-02-16 06:48] LABS: Hematocrit (blood only) 36.2 % (37.0-47.0); Hemoglobin 12.6 g/dl (12.0-16.0); Mean Corpuscular Hemoglobin 30.1 pg (25.0-34.0); Mean Corpuscular Hgb Conc 34.8 g/dL (32.0-36.0); Mean Corpuscular Volume 86.6 fL (80.0-100.0); Mean Platelet Volume 10.3 fL (9.4-12.4); Platelet Count 254 K/uL (130-400); RDW Coefficient of Variation 11.9 % (11.5-14.5); RDW Standard Deviation 37.6 fL (36.4-46.3); Red Blood Count 4.18 M/uL (4.20-5.40); White Blood Count 10.29 K/ul (4.8-10.8)
[2024-02-16 07:07] LABS: BUN Creatinine Ratio 14.7 (10-20); Calcium 9.2 mg/dl (8.6-10.3); Creatinine Clr Calc Pharmacy 81.1 ml/min; Magnesium 2.2 mg/dl (1.7-2.4)
--- NOTE | 2024-02-16 14:33 | Electrocardiogram Report ---
Test Reason : Blood Pressure : */* mmHG Vent. Rate : 72 BPM Atrial Rate : 72 BPM P-R Int : 146 ms QRS Dur : 96 ms QT Int : 436 ms P-R-T Axes : 81 76 53 degrees QTcB Int : 477 ms Normal sinus rhythm Normal ECG When compared with ECG of 15-Feb-2024 14:15, QT has shortened Confirmed by Gaurav Prieto ([id number]) on 02/16/2024 2:32:54 PM Referred By: REFERRED SELF Confirmed By: Gaurav Prieto
--- NOTE | 2024-02-16 15:01 | Electrocardiogram Report ---
Test Reason : Blood Pressure : */* mmHG Vent. Rate : 75 BPM Atrial Rate : 75 BPM P-R Int : 162 ms QRS Dur : 96 ms QT Int : 426 ms P-R-T Axes : 80 79 59 degrees QTcB Int : 475 ms Normal sinus rhythm Right atrial enlargement Borderline ECG When compared with ECG of 15-Feb-2024 22:58, (unconfirmed) No significant change was found Confirmed by Gaurav Prieto ([id number]) on 02/16/2024 3:01:05 PM Referred By: REFERRED SELF Confirmed By: Gaurav Prieto
[2024-02-16] MEDS: POLYETHYLENE (MIRALAX) 17 GM PACK PO SCH (15:06)
[2024-02-16] MEDS: MULTIVITAMIN TAB PO SCH (15:07)
--- NOTE | 2024-02-16 15:35 | Electrocardiogram Report ---
Test Reason : Blood Pressure : */* mmHG Vent. Rate : 70 BPM Atrial Rate : 70 BPM P-R Int : 154 ms QRS Dur : 98 ms QT Int : 440 ms P-R-T Axes : 81 76 60 degrees QTcB Int : 475 ms Normal sinus rhythm Normal ECG When compared with ECG of 15-Feb-2024 18:09, (unconfirmed) No significant change was found Confirmed by Gaurav Prieto ([id number]) on 02/16/2024 3:35:06 PM Referred By: REFERRED SELF Confirmed By: Gaurav Prieto
--- NOTE | 2024-02-16 16:25 | Hospitalist Progress Note ---
Date of Service February 16, 2024 Assessment & Plan (1) Acute drug overdose: Plan: 18yo female with history of depression on Escitalopram presenting with intentional overdose in attempt to end her life. Patient reports taking 2gm of Escitalopram this evening around 20:00. She does have appreciable nystagmus and tremors and had a witnessed seizure in the ER. Prolonged QT noted on initial EKG -Ativan as needed for agitation - 0.5mg IV q 8 hours scheduled. -CBC reviewed 02/15: leukocytosis resolved, H/H stable -BMP reviewed 02/15: electrolytes/kidney function stable. -Mg reviewed 02/15: 2.2 -reviewed Psych consult from 02/14 continue 1 on for risk of harm to self. do not discharge or allow to leave AMA hold psych meds for now -Discussed with nutrition via tiger text 02/15 concern for refeeding syndrome. added daily multivitamin and bowel regimen plan to check AM mag and phosphorous -Discussed with Psych liaison via tiger text 02/15 patient will likely be medically clear to report to inpatient psych on 02/16. Family is looking for facilities in [facility]. Unfortunately our inpatient psych unit is out of network for their insurance. AM CBC, BMP, Magnesium, phosphorus (2) Electrolyte abnormality: Plan: Plan as above Plan Discussed plan w/ mother at bedside 02/15 Diet: regular Disposition: tele Admission and Anticipated Discharge Date Admission Date: February 14, 2024 Subjective Patient seen and examined this morning. card doffer at bedside. Mother at bedside. Patient reports to be feeling better today. She was able to tolerate breakfast this morning. Denied nausea. Is still experiencing light headedness/dizziness w/ standing/walking occasionally but feels it is improving. Tremors are better today. Physical Exam 2 Constitutional: WD/WN, vitals as above Eyes: PERRL, conjunctivae normal, anicteric sclerae Respiratory: normal respiratory effort, lungs clear to auscultation Cardiovascular: RRR, no murmur, no edema Gastrointestinal (Abdomen): normal bowel sounds, soft, nontender, no hepatosplenomegaly Skin: no rashes, warm and dry Psychiatric: A+Ox3, euthymic affect Results & Data Results & Data Vital Signs (Past 12 Hours) Vital Signs Temp Pulse Pulse Resp BP Pulse Ox O2 Del Method 02/16/24 08:01 36.6 C 76 15 107/65 96 Room Air 10/31/24 07:00 68 Laboratory Results 02/16/24 06:17 02/16/24 06:17 PG Care Time/CCT Total # of Minutes Spent Total Time Spent with Patient: Total time spent is greater than 50% in coordination of care (as documented) at patient's floor/unit and/or counseling patient: Coding Level of Care Code 19709 SUB INP/OBS CARE 3/50MIN Diagnoses Acute drug overdose T50.902A Encounter type: initial encounter Injury intent: intentional self-harm Electrolyte abnormality E87.8 (1) Acute drug overdose Encounter type: initial encounter Injury intent: intentional self-harm Qualified Code(s): T50.902A - Poisoning by unspecified drugs, medicaments and biological substances, intentional self-harm, initial encounter
[2024-02-17 05:14] LABS: Hematocrit (blood only) 38.6 % (37.0-47.0); Hemoglobin 13.2 g/dl (12.0-16.0); Mean Corpuscular Hemoglobin 30.1 pg (25.0-34.0); Mean Corpuscular Hgb Conc 34.2 g/dL (32.0-36.0); Mean Corpuscular Volume 87.9 fL (80.0-100.0); Mean Platelet Volume 10.1 fL (9.4-12.4); Platelet Count 238 K/uL (130-400); RDW Coefficient of Variation 11.9 % (11.5-14.5); RDW Standard Deviation 38.6 fL (36.4-46.3); Red Blood Count 4.39 M/uL (4.20-5.40)
[2024-02-17 05:34] LABS: BUN Creatinine Ratio 22.6 (10-20); Calcium 9.2 mg/dl (8.6-10.3); Creatinine Clr Calc Pharmacy 98.1 ml/min; Phosphorus 4.9 mg/dl (2.5-4.9); Potassium 3.8 mmol/L (3.5-5.1)
--- NOTE | 2024-02-17 11:35 | Hospitalist Progress Note ---
Date of Service February 17, 2024 Assessment & Plan (1) Acute drug overdose: Plan: 18yo female with history of depression on Escitalopram presenting with intentional overdose in attempt to end her life. Patient reports taking 2gm of Escitalopram this evening around 20:00. She does have appreciable nystagmus and tremors and had a witnessed seizure in the ER. Prolonged QT noted on initial EKG Moderate malnutrition -Ativan as needed for agitation - 0.5mg IV q 8 hours scheduled. -CBC reviewed 02/16: stable -BMP reviewed 02/16: electrolytes/kidney function stable. -Mg/phosphorous reviewed 02/16: stable. -reviewed Psych consult from 02/14 continue for risk of harm to self. do not discharge or allow to leave AMA hold psych meds for now -Discussed with nutrition via tiger text 02/15 concern for refeeding syndrome. added daily multivitamin and bowel regimen plan to check AM mag and phosphorous -Patient is medically cleared for inpatient psych facility. (2) Electrolyte abnormality: Plan: Plan as above Plan Discussed plan w/ mother at bedside 02/16 Diet: regular Disposition: medical Admission and Anticipated Discharge Date Admission Date: February 14, 2024 Subjective Patient seen and examined this morning with mother and medical safety director at bedside. Patient reported to be feeling well today. She denied any nausea. States she has intermittent periods of dizziness but this is improving. Physical Exam 2 Constitutional: WD/WN, vitals as above Eyes: PERRL, conjunctivae normal, anicteric sclerae Respiratory: breathing unlabored Cardiovascular: well perfused Psychiatric: A+Ox3, euthymic affect Results & Data Results & Data Vital Signs (Past 12 Hours) Vital Signs Temp Pulse Pulse Resp BP BP Pulse Ox 02/17/24 11:21 36.7 C 82 18 99/66 L 96 02/17/24 08:38 36.9 C 64 20 95/57 L 95 02/17/24 07:22 67 02/17/24 05:06 36.6 C 69 16 103/68 96 O2 Del Method 02/17/24 11:21 Room Air 02/17/24 08:38 Room Air 02/17/24 07:22 02/17/24 05:06 Room Air Laboratory Results 02/17/24 04:58 02/17/24 04:58 PG Care Time/CCT Total # of Minutes Spent Total Time Spent with Patient: Total time spent is greater than 50% in coordination of care (as documented) at patient's floor/unit and/or counseling patient: Coding Level of Care Code 70690 SUB INP/OBS CARE MIN Diagnoses Acute drug overdose T50.902A Encounter type: initial encounter Injury intent: intentional self-harm Electrolyte abnormality E87.8 (1) Acute drug overdose Encounter type: initial encounter Injury intent: intentional self-harm Qualified Code(s): T50.902A - Poisoning by unspecified drugs, medicaments and biological substances, intentional self-harm, initial encounter
--- NOTE | 2024-02-17 23:32 | Communication Note ---
Date of Service: February 17, 2024 Notified by psychiatry liaison of bed availability at [facility]. Patient evaluated in room, resting comfortably with mother at bedside. Gen: NAD, alert, interactive HEENT: Supple, no LAD Resp:Non-labored, no wheezing/rhonchi/rales, CTAB CV:RRR, normal S1/S2, no M/R/G Abd: Soft, non-distended, no TTP, normoactive bowels, no masses Extr: 2+ dp bilaterally, no edema, reflexes 2+ and symmetric, no clonus on exam in UE or LE Skin: No rashes lesions or erythema Patient lost IV site, preference to avoid replacement of IV if transition to inpatient [facility]. IV medications changed to PO. Resident Activity Tracking Resident Involvement: Resident Care Provided Care Provided: Adult Hospital Medicine
[2024-02-18] MEDS: LORazepam 0.5 MG TAB PO SCH (06:04)
[2024-02-18 14:15] VITALS: O2SAT 97
[2024-02-18] MEDS: INFLUENZA VACC TS2024-25(6m+)/PF (IIV3) 0.5mL Syr IM ONE (17:00)
[2024-02-18 19:18] VITALS: BP 105/70; PULSE 67; RESP 17; TEMP 98.2
--- NOTE | 2024-02-22 17:12 | Discharge Summary ---
Discharge Summary Date of Service February 18, 2024 Principal Dx & Hospital Course #1 = Principal Diagnosis (1) Acute drug overdose: 18yo female with history of depression on Escitalopram presenting with intentional overdose in attempt to end her life. Patient reports taking 2gm of Escitalopram this evening around 20:00. She does have appreciable nystagmus and tremors and had a witnessed seizure in the ER. Prolonged QT noted on initial EKG Moderate malnutrition -Ativan as needed for agitation - 0.5mg IV q 8 hours scheduled. -CBC reviewed 02/16: stable -BMP reviewed 02/16: electrolytes/kidney function stable. -Mg/phosphorous reviewed 02/16: stable. -reviewed Psych consult from 02/14 continue for risk of harm to self. do not discharge or allow to leave AMA hold psych meds for now -Discussed with nutrition via tiger text 02/15 concern for refeeding syndrome. added daily multivitamin and bowel regimen plan to check AM mag and phosphorous -Patient is medically cleared for inpatient psych facility. (2) Electrolyte abnormality: Plan as above Admission HPI Per Admitting Provider Jenifer Stephens is a 18yo female with history of depression presenting after an intentional overdose. Patient reports feeling overwhelmed and increased depression over the last week. This evening around 20:00 she took 2000mg of Escitalopram. She did vomit after the ingestion but is unsure how many pills came up, if any at all. Patient reports prior suicidal ideation, no prior attempts. She has been on Escitalopram for a while - medications managed by her home physician. In the ER patient noted to be tremulous with nystagmus. She had a witnessed tonic-clonic seizure which abated with IV Ativan Patient's initial EKG with narrow complex tachycardia at 133bpm, prolonged [id number] ER Course: NSS x 2L Ativan 0.5mg IV x 3 doses KCl 10mEq IV + 10mEq IV + 80mEq PO Magnesium sulfate x 2gm Discharge Exam Constitutional WD/WN, vitals as above Discharge Plan Discharge Items Patient Disposition: Transfer [facility] Reason For Visit: INTENTIONAL OVERDOSE Discharge Diagnosis: intentional overdose Activity: Resume your previous activity Non-emergency contact: Primary Care Provider Call non-emergency contact if: you have any medication questions Follow-up/Referrals: Stephanie Figueroa MD [Primary Care Provider] - Diet: Regular Addtl Attending Provider Instructions: discharged to behavior [facility] Pending Studies at Discharge: No Stand-Alone Forms: My [facility] Medications and DC Order Prescriptions: Discontinued escitalopram oxalate 20 mg tablet 20 mg PO DAILY escitalopram oxalate 5 mg tablet 5 mg PO UD Discharge Orders: Discharge Order (Routine); Ordered 02/18/24 Ordered By: Teo Jensen Admission Data Admit Date/Time: 02/14/24 23:32 Attending Provider: Teo Jensen Admit Provider: Jannette Posada Primary Care Provider: Stephanie Figueroa Other Providers: Jannette Posada; Patsy Holliday; Reilly Hooper; Eleanor Duggan; Meme Martini; Venkatesh Pitt; Radha Cameron Other Interventions: Discharge Summary Assessment (RN) Last Done: 02/18/24 16:28 Hospital Stay Data Consultations 02/14/24 22:29 ED Decision to Admit Stat 02/14/24 23:31 Consult Psychiatry Routine 02/15/24 03:30 Consult Behavioral Health Liaison Routine Diagnostic Imagining Performed 02/14/24 22:40 CT head/brain wo con Stat Pending Results Patient Have Any Pending Studies at Discharge: No Discharge Instructions Given to Patient (Per Discharging Provider) discharged to [facility] Total Time Total Time Spent Total Time Spent (In Minutes): 32 Coding Level of Care Code 76451 IN/OBS DISCH 30 MIN/LESS Diagnoses Acute drug overdose T50.902A Encounter type: initial encounter Injury intent: intentional self-harm Electrolyte abnormality E87.8 Time Spent (min) 20
== END 2024-02-18 19:45 | DRG 918 ==
LOC: ED 21:44 → 4W 23:32 → SUATTDRO 23:32 → 4W 02-15 01:59 → 3E 02-17 23:12
DX: E87.6 Hypokalemia; F32.9 Major depressive disorder, single episode, unspecified; R56.9 Unspecified convulsions; R45.851 Suicidal ideations; Z55.8 Other problems related to education and literacy; R63.0 Anorexia; Z79.899 Other long term (current) drug therapy; F41.1 Generalized anxiety disorder; T43.222A Poisoning by selective serotonin reuptake inhibitors, intentional self-harm, initial encounter; E44.0 Moderate protein-calorie malnutrition